=== PATIENT | female | born 1950 | race Caucasian/White ===

== ENCOUNTER 2023-10-09 08:07 | Outpatient (CLI) | payer OTHER ==
[~2023-10-09 08:07] MED LIST: CALAN; CALAN SR 120MG120 MG PO; GLYBURIDE 6 MG; HUMULIN N100 U/ML SQ; NORVASC; PRILOSEC20 MG PO; ZOCOR40 MG PO
== END 2023-10-09 08:17 | disposition home or self-care (01) ==
LOC: TOM 08:07
PROVIDERS: ATTEND Internal Medicine Gastroenterology
DX: R10.84 Generalized abdominal pain (principal); R10.2 Pelvic and perineal pain